=== PATIENT | male | born 1990 | race Two or more races ===

== ENCOUNTER → 2017-11-18 | Emergency (ER) | payer OTHER ==
[~2017-11-18] VITALS: Ht 185.4 cm; Wt 136.1 kg
== END | disposition home or self-care (01) ==
LOC: ER 23:38
DX: M79.1 Myalgia (principal)

== ENCOUNTER 2019-01-07 04:08 | Emergency (ER) | payer OTHER ==
[~2019-01-07] VITALS: Ht 185.4 cm; Wt 136.1 kg
== END 2019-01-07 07:43 | disposition home or self-care (01) ==
LOC: ER 04:08
DX: M25.512 Pain in left shoulder (principal)

== ENCOUNTER 2019-09-12 23:22 | Emergency (ER) | payer OTHER ==
[~2019-09-12] VITALS: Ht 185.4 cm; Wt 136.1 kg
[2019-09-13] MEDS ORDERED: ADALAT CC30 MG PO (05:07)
== END 2019-09-13 05:10 | disposition home or self-care (01) ==
LOC: ER 23:22
DX: I16.1 Hypertensive emergency (principal); I10 Essential (primary) hypertension